=== PATIENT | female | born 1980 | race Caucasian/White ===

== ENCOUNTER 2021-01-22 12:39 | Emergency (ER) | payer OTHER, SELFPAY ==
[~2021-01-22] VITALS: Ht 162.6 cm; Wt 65.8 kg
[2021-01-22 12:39] VITALS: BP_SYST 102
[2021-01-22] MEDS ORDERED: ALBU8.5H8 INH (14:08)
[2021-01-22] MEDS ORDERED: PRED20TA PO (14:08)
[2021-01-22] MEDS ORDERED: methylPREDNISolone SOD SUCC/PF 62.5 MG/ML VIAL IM ONE (14:15)
== END 2021-01-22 14:30 | disposition home or self-care (01) ==
LOC: SED 12:39
DX: J40 Bronchitis, not specified as acute or chronic (principal); Z20.822 Contact with and (suspected) exposure to COVID-19
CPT/HCPCS: 71045; 87426; 96372; 99284; J2930; 36415

== ENCOUNTER 2022-04-07 11:00 | Outpatient (CLI) | payer OTHER ==
[~2022-04-07 11:00] MED LIST: ALBU8.5H8 INH; PRED20TA PO
[2022-04-07] MEDS ORDERED: GADOTERATE MEGLUMINE 7.5 MMOL/15 ML VIAL IV ONE (11:26)
== END 2022-04-07 19:50 | disposition home or self-care (01) ==
LOC: SMI 11:00
PROVIDERS: ATTEND Specialist
DX: R19.09 Other intra-abdominal and pelvic swelling, mass and lump (principal); N85.8 Other specified noninflammatory disorders of uterus
CPT/HCPCS: 72197; A9575